=== PATIENT | male | born 1965 | race Caucasian/White ===

== ENCOUNTER 2019-11-23 14:12 | Emergency (ER) | payer OTHER ==
[~2019-11-23] VITALS: Ht 177.8 cm; Wt 90.7 kg
--- NOTE | 2019-11-23 14:30 | NUR ---
Patient presents to ER with c/o of lower back pain radiating to the Lt leg. Placed in RM 4A. Pt is alert and oriented x4; Pt rates 10/10. Awaiting MD diggs.
[2019-11-23] MEDS ORDERED: ONDANSETRON 4 MG/2 ML VIAL IV ONE (14:45)
[2019-11-23] MEDS ORDERED: MORPHINE SULFATE 4 MG/1 ML DISP.SYRIN IV ONE (14:45)
[2019-11-23] MEDS ORDERED: DEXAMETHASONE SOD PHOSPHATE 4 MG INJ IV ONE (14:45)
[2019-11-23] MEDS ORDERED: DEXAMETHASONE SOD PHOSPHATE 4 MG INJ ONE (14:49)
[2019-11-23] MEDS ORDERED: ONDANSETRON 4 MG/2 ML VIAL ONE (14:50)
[2019-11-23] MEDS ORDERED: MORPHINE SULFATE 4 MG/1 ML DISP.SYRIN ONE (14:50)
--- NOTE | 2019-11-23 15:21 | NUR ---
bladder scanner showed less than [address] Church made aware. pt also states pain is now 3/10 after IV medications.
[2019-11-23] MEDS ORDERED: IV NORMAL SALINE 1000 ML BAG IV ONE (15:30)
--- NOTE | 2019-11-23 15:50 | NUR ---
Dr. Church at bedside performing rectal exam.
--- NOTE | 2019-11-23 16:24 | NUR ---
bladder rescanned, noted less than 10ml post void. Dr. Church made aware.
--- NOTE | 2019-11-23 16:43 | NUR ---
Per Dr. Church, pt stable for discharge. DC instructions and prescriptions given and reviewed with patient. Verbalized understanding. IV d'cd noted with tip intact. Left ER in stable condition with steady gait using cane.
[2019-11-23 16:44] VITALS: BP 155/78
== END 2019-11-23 16:46 | disposition home or self-care (01) ==
LOC: ER 14:12
DX: M54.42 Lumbago with sciatica, left side (principal); R03.0 Elevated blood-pressure reading, without diagnosis of hypertension
CPT/HCPCS: 96374; 96375; 99284; J1100; J2270; J2405; A4663